=== PATIENT | female | born 1950 | race Hispanic/Latino ===

== ENCOUNTER 2019-02-14 11:00 | Emergency (ER) | payer MEDICARE ==
[~2019-02-14] VITALS: Ht 142.2 cm; Wt 57.6 kg
--- NOTE | 2019-02-14 13:58 | Diagnostic Imaging Report ---
EXAMINATION: KNEE LEFT THREE VIEWS INDICATION: Knee pain COMPARISON: None FINDINGS: AP, lateral and oblique images of the left knee demonstrate no acute fracture or dislocation. Alignment is anatomic. No substantial joint effusion. No significant degenerative change. IMPRESSION: No acute osseous injury. No substantial degenerative change. Signed by: Luz Kay MD on 02/14/2019 1:55 PM
--- NOTE | 2019-02-14 14:03 | NUR ---
Pt requesting disc of xray to bring to her doctor. Radiology contacted.
[2019-02-14 14:32] VITALS: BP 127/59
== END 2019-02-14 14:34 | disposition home or self-care (01) ==
LOC: ER 11:00
DX: S83.412A Sprain of medial collateral ligament of left knee, initial encounter (principal); S80.02XA Contusion of left knee, initial encounter; M25.562 Pain in left knee; X50.1XXA Overexertion from prolonged static or awkward postures, initial encounter; Y92.008 Other place in unspecified non-institutional (private) residence as the place of occurrence of the external cause
CPT/HCPCS: 99283

== ENCOUNTER 2020-01-28 15:20 | Observation (INO) | payer MEDICARE ==
[~2020-01-28] VITALS: Ht 142.2 cm; Wt 57.6 kg
[2020-01-28] MEDS ORDERED: SODIUM CHLORIDE 0.9% 1000ML 1,000 ML IV STA (15:56)
[2020-01-28] MEDS ORDERED: MORPHINE SULFATE 2 MG/ML SYR 1ML IV NR (16:00)
[2020-01-28] MEDS ORDERED: LIDOCAINE HCL 2% 2 ML AMP INJ NR (16:00)
[2020-01-28] MEDS ORDERED: ONDANSETRON HCL INJ 2MG/ML 2ML 2 MG/ML VIAL IV NR (16:15)
[2020-01-28 16:18] LABS: BASOPHILS % 0.3 % (0.0-1.0); EOSINOPHILS # (AUTO) 0.1 (0.0-0.4); HEMATOCRIT 38.6 % (34.2-44.1); HEMOGLOBIN 12.6 g/dL (12.0-16.0); LYMPHOCYTES # (AUTO) 2.6 (1.0-3.2); MEAN CORPUSCULAR HEMOGLOBIN 27.2 pg (28-32); MEAN CORPUSCULAR HGB CONC 32.6 g/dL (31-35); MEAN CORPUSCULAR VOLUME 83.4 fL (81-99); MONOCYTES # (AUTO) 0.6 (0.2-0.8); MONOCYTES % 9.4 % (4.4-11.3); NEUTROPHILS # (AUTO) 3.2 (2.1-6.9); NEUTROPHILS % 47.8 % (38.7-80.0); PLATELET COUNT 256 x10e3/uL (140-360); RED BLOOD COUNT 4.63 x10e6/uL (3.6-5.1); RED CELL DISTRIBUTION WIDTH 13.2 % (11.7-14.4)
[2020-01-28 16:23] LABS: INR 0.88; PARTIAL THROMBOPLASTIN TIME 25.9 seconds (23.8-35.5); PROTHROMBIN TIME 12.4 seconds (11.9-14.5)
[2020-01-28 16:32] LABS: ALANINE AMINOTRANSFERASE 13 IU/L (0-55); ALBUMIN/GLOBULIN RATIO 1.3 (0.8-2.0); ALKALINE PHOSPHATASE 80 IU/L (40-150); ANION GAP 14.1 mmol/L (8-16); BLOOD UREA NITROGEN 15 mg/dL (7-26); BUN/CREATININE RATIO 19 (6-25); CALCIUM 9.5 mg/dL (8.4-10.2); CARBON DIOXIDE 22 mmol/L (22-29); CHLORIDE 107 mmol/L (98-107); CREATININE, SERUM 0.81 mg/dL (0.57-1.11); EST GLOMERULAR FILTRATION RATE > 60 ML/MIN (60-); GLUCOSE 119 mg/dL (74-118); POTASSIUM 4.1 mmol/L (3.5-5.1); SODIUM 139 mmol/L (136-145)
[2020-01-28] MEDS ORDERED: SODIUM CHLORIDE 0.9% 1000ML 1,000 ML IV SCH (17:15)
[2020-01-28] MEDS ORDERED: ONDANSETRON HCL INJ 2MG/ML 2ML 2 MG/ML VIAL IV PRN (17:15)
[2020-01-28] MEDS ORDERED: MORPHINE SULFATE 2 MG/ML SYR 1ML IV PRN (17:15)
[2020-01-28] MEDS: PIPER-TAZ 3.375 GM 50 ML IV SCH (17:22)
--- NOTE | 2020-01-28 18:02 | Emergency Department Note ---
History of Present Illnes History of Present Illness Chief Complaint: Extremity Trauma/Pain History of Present Illness This is a 69 year old female LEFT THUMB PARTIAL AMPUTATION. BLEEDING CONTROLLED. PT WAS USING SINK TRAP SNAKE TO OPEN DRAIN AND COILED AROUND THUMB AND CUT DISTAL THUMB OFF. EMS BROUGHT THUMB PIECE Historian: Patient, Compliance Aide/EMS Arrival Mode: [facility] Treatment ECHO TECHNICIAN: See EMS Report History limited by: language barrier Structural Steel Painter Required: No Onset (how long ago): minute(s) Location: LEFT THUMB Quality: PAIN Radiation: Reports non-radiation Severity: severe Onset quality: sudden Timing of current episode: constant Chronicity: new Context: Denies recent illness Relieving factors: none Exacerbating factors: none Associated symptoms: Reports denies other symptoms Treatments prior to arrival: none Past Medical/Family History Physician Review I have reviewed the patient's past medical and family history. Any updates have been documented here. Past Medical History Recent Fever: No Clinical Suspicion of Infectio: No New/Unexplained Change in Ment: No Past Medical History: None Past Surgical History: None Social History Smoking Cessation: Never Smoker Counseling Performed: No Alcohol Use: None Any Illegal Drug Use: No TB Exposure/Symptoms: No Physically hurt or threatened: No Other Last Tetanus: UNKNOWN Any Pre-Existing Lines (PICC,: No Review of Systems Review of Systems Constitutional: Reports no symptoms EENTM: Reports no symptoms Cardiovascular: Reports no symptoms Respiratory: Reports no symptoms Gastrointestinal: Reports no symptoms Genitourinary: Reports no symptoms Musculoskeletal: Reports as per HPI Integumentary: Reports no symptoms Neurological: Reports no symptoms Psychological: Reports no symptoms Endocrine: Reports no symptoms Hematological/Lymphatic: Reports no symptoms Physical Exam Related Data Allergies: Coded Allergies: No Known Allergies (Unverified , 02/14/19) Triage Vital Signs Vital Signs Date Time Temp Pulse Resp B/P (MAP) Pulse Ox O2 Delivery O2 Flow Rate FiO2 01/28/20 15:22 97.5 92 18 158/92 100 Room Air Vital signs reviewed: Yes Physical Exam CONSTITUTIONAL Constitutional: Present well-developed, Present well-nourished HENT HENT: Present normocephalic, Present atraumatic, Present oropharynx clear/moist, Present nose normal HENT L/R: Present left ext ear normal, Present right ext ear normal EYES Eyes: Reports PERRL, Reports conjunctivae normal NECK Neck: Present ROM normal PULMONARY Pulmonary: Present effort normal, Present breath sounds normal CARDIOVASCULAR Cardiovascular: Present regular rhythm, Present heart sounds normal, Present capillary refill normal, Present normal rate GASTROINTESTINAL Abdominal: Present soft, Present nontender, Present bowel sounds normal GENITOURINARY Genitourinary: Present exam deferred SKIN Skin: Present warm, Present dry MUSCULOSKELETAL Musculoskeletal: Present other (DISTAL LEFT THUMB AMPUTATED JUST DISTAL TO DIP, BONE EXPOSED) NEUROLOGICAL Neurological: Present alert, Present oriented x 3, Present no gross motor or sensory deficits PSYCHOLOGICAL Psychological: Present mood/affect normal, Present judgement normal Results Laboratory Result Diagram: 01/28/20 1552 01/28/20 1552 Laboratory Laboratory Tests Test 01/28/20 15:52 White Blood Count 6.60 x10e3/uL (4.8-10.8) Red Blood Count 4.63 x10e6/uL (3.6-5.1) Hemoglobin 12.6 g/dL (12.0-16.0) Hematocrit 38.6 % (34.2-44.1) Mean Corpuscular Volume 83.4 fL (81-99) Mean Corpuscular Hemoglobin 27.2 pg (28-32) Mean Corpuscular Hemoglobin Concent 32.6 g/dL (31-35) Red Cell Distribution Width 13.2 % (11.7-14.4) Platelet Count 256 x10e3/uL (140-360) Neutrophils (%) (Auto) 47.8 % (38.7-80.0) Lymphocytes (%) (Auto) 40.0 % (18.0-39.1) Monocytes (%) (Auto) 9.4 % (4.4-11.3) Eosinophils (%) (Auto) 2.0 % (0.0-6.0) Basophils (%) (Auto) 0.3 % (0.0-1.0) Neutrophils # (Auto) 3.2 (2.1-6.9) Lymphocytes # (Auto) 2.6 (1.0-3.2) Monocytes # (Auto) 0.6 (0.2-0.8) Eosinophils # (Auto) 0.1 (0.0-0.4) Basophils # (Auto) 0.0 (0.0-0.1) Absolute Immature Granulocyte (auto 0.03 x10e3/uL (0-0.1) Prothrombin Time 12.4 seconds (11.9-14.5) Prothromb Time International Ratio 0.88 Activated Partial Thromboplast Time 25.9 seconds (23.8-35.5) Sodium Level 139 mmol/L (136-145) Potassium Level 4.1 mmol/L (3.5-5.1) Chloride Level 107 mmol/L (98-107) Carbon Dioxide Level 22 mmol/L (22-29) Anion Gap 14.1 mmol/L (8-16) Blood Urea Nitrogen 15 mg/dL (7-26) Creatinine 0.81 mg/dL (0.57-1.11) Estimat Glomerular Filtration Rate > 60 ML/MIN (60-) BUN/Creatinine Ratio 19 (6-25) Glucose Level 119 mg/dL (74-118) Calcium Level 9.5 mg/dL (8.4-10.2) Total Bilirubin 0.4 mg/dL (0.2-1.2) Aspartate Amino Transf (AST/SGOT) 18 IU/L (5-34) Alanine Aminotransferase (ALT/SGPT) 13 IU/L (0-55) Alkaline Phosphatase 80 IU/L (40-150) Total Protein 7.1 g/dL (6.5-8.1) Albumin 4.0 g/dL (3.5-5.0) Globulin 3.1 g/dL (2.3-3.5) Albumin/Globulin Ratio 1.3 (0.8-2.0) Lab results reviewed: Yes Imaging Imaging results reviewed: Yes Assessment & Plan Medical Decision Making MDM CHECK XRAY, SPOKE WITH DR AVILA - UNABLE TO COME NOW, WILL ADMIT OVERNIGHT, GIVE IV ABX'S, SHE WILL SHORTEN THE BONE AND CLOSE FLAP IN AM TOMORROW. 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 Depart Disposition: ADMITTED Last Vital Signs Date Time Temp Pulse Resp B/P (MAP) Pulse Ox O2 Delivery O2 Flow Rate FiO2 01/28/20 16:10 85 13 140/118 100 Room Air 01/28/20 15:54 98.3 Medications in the ED Morphine Sulfate 4 mg ONCE IV ; Start 01/28/20 at 16:00; Stop 02/04/20 at 15:59 Ondansetron HCl 4 mg ONCE IV ; Start 01/28/20 at 16:15; Stop 01/28/20 at 17:59 Sodium Chloride 1,000 ml @ 0 mls/hr Q0M STAT IV Last administered on 01/28/20at 16:39; Admin Dose 999 MLS/HR; Start 01/28/20 at 15:56; Stop 01/28/20 at 16:04; Status DC Lidocaine HCl 20 ml ONCE INJ ; Start 01/28/20 at 16:00; Stop 01/28/20 at 17:59 Piperacillin Sod/ Tazobactam Sod 50 ml @ 50 mls/hr Q6H IV Last administered on 01/28/20at 17:22; Admin Dose 50 MLS/HR; Start 01/28/20 at 16:30; Stop 02/04/20 at 16:29 Ondansetron HCl 4 mg Q4H PRN IV NAUSEA AND VOMITING; Start 01/28/20 at 17:15; Stop 02/27/20 at 17:14 Sodium Chloride 1,000 ml @ 100 mls/hr Q10H IV ; Start 01/28/20 at 17:15; Stop 01/29/20 at 03:14 Morphine Sulfate 2 mg Q3H PRN IV PAIN Last administered on 01/28/20at 17:21; Admin Dose 2 MG; Start 01/28/20 at 17:15; Stop 02/04/20 at 17:14 SANTIAGO LUX MD Jan 28, 2020 18:02
--- NOTE | 2020-01-28 18:18 | Diagnostic Imaging Report ---
Exam: Left hand radiographs-3 views History: Amputation left thumb. Comparison: None. Findings/Impression: There is been partial amputation of the thumb across the proximal aspect of the distal phalanx. The remaining base of the thumb distal phalanx is exposed. Surrounding soft tissue edema and bandage material. No additional fractures identified. No dislocation. Signed by: Dr. Ezra Cervantes MD on 01/28/2020 6:15 PM
[2020-01-28] MEDS ORDERED: ACETAMINOPHEN 325 MG TAB PO PRN (19:00)
[2020-01-28] MEDS ORDERED: KETOROLAC TROMETHAMINE 30 MG/ML VIAL IV PRN (19:00)
[2020-01-28] MEDS ORDERED: HYDRALAZINE HCL 25 MG TAB PO PRN (19:00)
[2020-01-28] MEDS ORDERED: AMLODIPINE BESYLATE 10 MG TAB PO PRN (19:00)
[2020-01-28] MEDS ORDERED: HYDROCODONE/APAP 7.5MG-325MG 1 EA TAB PO PRN (19:00)
[2020-01-28] MEDS ORDERED: FAMOTIDINE 20 MG/2 ML VIAL IV NR (19:00)
--- NOTE | 2020-01-28 19:13 | NUR ---
RECEIVED REPORT FROM ALEJANDRO WALKER FROM THE ER. -PATIENT ARRIVED TO THE UNIT @ 1845 VIA WHEEL CHAIR. PATIENT IN STABLE CONDITION, NO S/S OF DISTRESS NOTED. NO PAIN VOICED. REPORT GIVEN TO THE ON COMING NIGHT NURSE.
--- NOTE | 2020-01-28 19:58 | NUR ---
RECEIVED PT IN BED AOX3 ,LISA PAIN PT LEFT THUMB WITH WOUND NPO AFTER MIDNIGHT LEFT AC 20G S/L NPO AFTER MIDNIGHT ,CALL LIGHT WITH IN REACH CONTINUE TO MONITOR
[2020-01-28] MEDS: CELECOXIB 100 MG CAP PO SCH (20:00)
[2020-01-28 21:00] VITALS: BP 152/68
[2020-01-29] VITALS (7 sets, daily range): BP systolic 100–128; BP diastolic 50–61
[2020-01-29] MEDS ORDERED: SODIUM CHLORIDE 0.9% 250ML 250 ML ONE (00:37)
[2020-01-29 05:38] LABS: BASOPHILS % 0.6 % (0.0-1.0); EOSINOPHILS # (AUTO) 0.1 (0.0-0.4); EOSINOPHILS % 1.4 % (0.0-6.0); HEMATOCRIT 33.7 % (34.2-44.1); HEMOGLOBIN 11.7 g/dL (12.0-16.0); LYMPHOCYTES # (AUTO) 2.2 (1.0-3.2); LYMPHOCYTES % 31.9 % (18.0-39.1); MEAN CORPUSCULAR HEMOGLOBIN 30.5 pg (28-32); MEAN CORPUSCULAR HGB CONC 34.7 g/dL (31-35); MEAN CORPUSCULAR VOLUME 87.8 fL (81-99); MONOCYTES # (AUTO) 0.7 (0.2-0.8); MONOCYTES % 9.3 % (4.4-11.3); NEUTROPHILS % 56.7 % (38.7-80.0); PLATELET COUNT 184 x10e3/uL (140-360); RED BLOOD COUNT 3.84 x10e6/uL (3.6-5.1); RED CELL DISTRIBUTION WIDTH 14.8 % (11.7-14.4)
[2020-01-29] MEDS: PIPER-TAZ 3.375 GM 50 ML IV SCH ×3 (05:55→11:40)
[2020-01-29 06:07] LABS: ALANINE AMINOTRANSFERASE 11 IU/L (0-55); ALBUMIN 3.4 g/dL (3.5-5.0); ALBUMIN/GLOBULIN RATIO 1.3 (0.8-2.0); ALKALINE PHOSPHATASE 64 IU/L (40-150); ANION GAP 10.8 mmol/L (8-16); BLOOD UREA NITROGEN 12 mg/dL (7-26); BUN/CREATININE RATIO 16 (6-25); CALCIUM 8.6 mg/dL (8.4-10.2); CARBON DIOXIDE 25 mmol/L (22-29); CHLORIDE 111 mmol/L (98-107); CREATININE, SERUM 0.76 mg/dL (0.57-1.11); EST GLOMERULAR FILTRATION RATE > 60 ML/MIN (60-); GLUCOSE 98 mg/dL (74-118); POTASSIUM 3.8 mmol/L (3.5-5.1); SODIUM 143 mmol/L (136-145)
[2020-01-29] MEDS ORDERED: TETANUS/DIPHTHERIA TOX ADULT 0.5 ML SYR IM ONE (06:30)
--- NOTE | 2020-01-29 06:48 | NUR ---
TETANUS SHOT IS GIVEN TO RT UPPER ARM ,PT RESTING DENIES PAIN PT IS NPO ,CALL LIGHT WITH IN REACH ,CONTINUE TO MONITOR
--- NOTE | 2020-01-29 07:30 | NUR ---
PATIENT IS ALERT, AWAKE, AND IN STABLE CONDITION WITH NO S/S OF RESPIRATORY DISTRESS. PATIENT C/O LEFT THUMB PAIN 4/10- DRESSING APPLIED TO LEFT THUMB SITE. CALL LIGHT IS WITHIN REACH, PATIENT INSTRUCTED TO CALL FOR ASSISTANCE NEEDED.
--- NOTE | 2020-01-29 07:50 | NUR ---
BEDSIDE REPORT GIVEN TO THE ONCOMING NURSE
[2020-01-29] MEDS ORDERED: FAMOTIDINE 20 MG/2 ML VIAL IV SCH (09:00)
[2020-01-29] MEDS: CELECOXIB 100 MG CAP PO SCH (09:01)
[2020-01-29] MEDS ORDERED: BUPIVACAINE HCL 0.5% INJ 30 ML VIAL INJ ONE (09:24)
[2020-01-29] MEDS ORDERED: BUPIVACAINE 0.25%/EPI 30ML SDV INJ ONE (09:24)
[2020-01-29] MEDS ORDERED: BACITRACIN 50,000 UNIT VIAL ONE (09:25)
--- NOTE | 2020-01-29 09:54 | NUR ---
PATIENT OFF THE UNIT PER STRETCHER TO OR- PATIENT IN STABLE CONDITION WITH NO S/S OF RESPIRATORY DISTRESS. DRESSING APPLIED TO LEFT THUMB.
[2020-01-29] MEDS ORDERED: LIDOCAINE HCL 2% LOCAL 20 ML VIAL ONE (10:11)
--- NOTE | 2020-01-29 10:46 | Discharge Summary ---
Please review my history and physical. The patient is short-stay. She was seen by Dr. Laureen Sadler. The patient had left thumb partial amputation surgical intervention. The patient will discharge home with clindamycin and Cipro for 5 days. Mobic as needed for pain. I would like to add on Tylenol No. 3 as well. The patient is otherwise stable and discharged home today. MD ROBEL Matias/JAMILA /[id number]
--- NOTE | 2020-01-29 11:21 | History and Physical ---
CHIEF COMPLAINT: Left thumb partial amputation. HISTORY OF PRESENT ILLNESS: The patient is a 69 years old female, who was using a sink trap that smacked open the drain and coiled around the thumb and apparently she accidentally pulled it and cut the distal thumb off. The patient has bleeding. There is some question tissue that needs to be amputated. The patient is otherwise stable. She will see a plastic surgeon for her left thumb partial amputation. PAST MEDICAL HISTORY: Noncontributory. PAST SURGICAL HISTORY: SOCIAL HISTORY: The patient does not smoke or use alcohol. No regular drugs. ALLERGIES: NO KNOWN ALLERGIES. HOME MEDICATIONS: None. PHYSICAL EXAMINATION: VITAL SIGNS: Temperature is 98.9, blood pressure 105/56, pulse rate 64, and respirations 18. GENERAL: The patient is in no acute distress, awake. HEENT: Normocephalic, atraumatic. Anicteric. NECK: Supple grossly. PULMONARY: Clear. CARDIOVASCULAR: Regular rhythm. ABDOMEN: Soft. EXTREMITIES: Left thumb partial amputation. NEUROLOGIC: No focal deficit. LABORATORY DATA: Sodium is 142, potassium 3.8, chloride 111, bicarb 25, BUN 12, creatinine 0.1, glucose is 20, creatinine is 0.8, and glucose is 119. WBC is 7, hemoglobin 12, hematocrit 34, and platelets 256. IMAGING: Left hand showed there is a partial amputation of the thumb across the proximal aspect of the distal phalanx. The remaining base of the thumb distal phalanx exposed. Surrounding soft tissue edema . IMPRESSION: 1. Partial left thumb amputation due to accidentally using sharp object. 2. Antibiotic prophylactics. PLAN: After surgical intervention, the patient should be able to go home. She will follow up with the surgeon, Dr. Laureen Sadler. The patient will follow up with her family physician at the [facility] as planned. The patient is otherwise stable. Discharged home with Mobic 7.5 mg twice a day as needed for pain. Clindamycin 3 mg 3 times a day. Cipro 250 mg twice a day both for 5 days. Again, the patient should be able to follow up with her family physician for any adjustment of medication. MD ROBEL Matias/JAMILA /[id number]
[2020-01-29] MEDS ORDERED: TYLENOL WITH C1 EACH PO (12:50)
[2020-01-29] MEDS ORDERED: MOBIC15 MG PO (12:50)
[2020-01-29] MEDS ORDERED: CLINDAMYCIN HC150 MG PO (12:51)
[2020-01-29] MEDS ORDERED: CIPRO500 MG PO (12:51)
--- NOTE | 2020-01-29 12:52 | Consultation ---
DATE OF CONSULTATION: 01/29/2020 REASON FOR CONSULTATION: Left thumb amputation. HISTORY OF PRESENT ILLNESS: Rafaela Ross is 69-year-old female with a history of cardiac disease who presents for evaluation of left thumb amputation. She was using Roto-Rooter yesterday when she had an accident, accidently avulsed off the tip of her thumb. She presented by ambulance to the emergency department when she was found to have thumb ambulation. She was admitted for antibiotics. She denies any pain elsewhere other than the thumb. She is right hand dominant PAST MEDICAL HISTORY: Cardiac disease. PAST SURGICAL HISTORY: None. FAMILY HISTORY: History of diabetes and coronary artery disease. SOCIAL HISTORY: No tobacco or drug use. REVIEW OF SYSTEMS: Positive for numbness and tingling. Negative for fevers or chills. PHYSICAL EXAMINATION: GENERAL: The patient is alert, awake, and oriented x3. She is ambulating around the room. EXTREMITIES: Evaluation of the left thumb demonstrates dressing in place. There is a partial amputation to the left thumb just distal to the IP joint with exposed bone and fractured tendon. There is no sensation distal to the amputation. Skin around the finger appears warm and well perfused. IMAGING: X-rays of the left thumb demonstrates partial amputation to the level of the distal phalanx, just distal to the IP joint. ASSESSMENT: This is a 69-year-old female with a left thumb amputation. Treatment options were discussed with the patient. I discussed with the patient outcomes of replantation of the left thumb at this level versus revision amputation. The patient would like to proceed with revision amputation. Benefits and risks of surgery were discussed with the patient, including bleeding, infection, damage to vascular structures, need for additional surgery, persistent pain, stiffness, possible loss of life or limb and knowing this, she elected to proceed. Consent was obtained. We will plan for this to be done in the operating room. She will be discharged home later today and we will see her back in clinic in approximately 7-10 days. Contact information was placed into the chart. We will call her to schedule an appointment. MD MANISH Celis/MODL /[id number]
--- NOTE | 2020-01-29 13:22 | Operative Report ---
DATE OF PROCEDURE: 01/29/2020 SURGEON: Laureen Sadler MD ADDITIONAL ATTENDING PHYSICIAN: PREPROCEDURAL DIAGNOSIS: Left thumb amputation. POSTPROCEDURAL DIAGNOSIS: Left thumb amputation. PROCEDURES PERFORMED: 1. Left thumb revision amputation, peripheral nerve block. 2. Irrigation and debridement of the skin, subcutaneous tissue and bone. COMPLICATIONS: None. SPECIMENS: None. ESTIMATED BLOOD LOSS: Less than 5 mL. INDICATIONS FOR PROCEDURE: Rafaela Ross is a 69-year-old female with a history of cardiac disease who presents with a left thumb amputation at the level just distal to PIP joint that she sustained after she was using a Roto-Rooter and avulsed the tip of her thumb off . She presented to the emergency department and found to have a left thumb amputation. She was started on antibiotics. Benefits and risks of surgery were discussed with the patient including bleeding, infection, damage to vascular structures, need for additional surgery, persistent pain, stiffness, possible loss of life or limb and knowing this, she elected to proceed. INDICATIONS FOR PROCEDURE: The patient was identified in the preoperative holding area where the above noted site was marked. She was then transported to the operating room, where above-noted anesthesia was induced. She was placed supine on the table with the left upper extremity on to the hand table. Preprocedural time-out was called. Preoperative antibiotics were dosed. All were in agreement to begin. A 1% lidocaine and 0.5% Marcaine were used to perform a digital block to the level of the MPJ. Left upper extremity was then prepped and draped in usual sterile fashion. A Ashley drain was used to access the tourniquet. The thumb was noted to be avulsed with exposed bone just distal to the IP joint. Flaps were designed and the wound was debrided with the use of curved Iris scissors as well as a curette to debride the open fracture of the bone as well as the skin and soft tissue. Curved Iris scissors were used to perform sharp debridement of the skin and subcutaneous tissue. Once this was performed, dissection scissors were used to identify the neurovascular bundles on both sides of the thumb. Once the bundles were identified, the artery and the nerve were identified and cauterized with bipolar electrocautery and allowed to retract. The flexor tendon was noted to be avulsed at the level of the amputation. This was trimmed and allowed to retract as well. At this point, we then excised the remainder of the distal phalanx disarticulation at the level of the IP joint. A rongeur was then used to clean off the condyles and smooth off the edge of the bone. Once this was performed, we turned our attention to wound closure. The wound was then closed with 4-0 Prolene sutures and 5-0 plain gut ensuring a nice contour to the tip of the thumb with no dog ears. At this point, the tourniquet was then removed and the tip of the thumb pinned up nicely. A soft sterile dressing was then placed and the patient was then awakened from anesthesia and taken to the PACU in stable condition. POSTOPERATIVE PLAN: The patient will be discharged home today. She will see us back in clinic in 7 to 10 days for wound check and suture removal. MD MANISH Celis/JAMILA /[id number]
--- NOTE | 2020-01-29 18:13 | NUR ---
PATIENT OFF THE UNIT AT 1810 PER WHEELCHAIR ACCOMPANIED BY STAFF MEMBER TO THE FRONT LOBBY. PATIENT IN STABLE CONDITION WITH NO S/S OF RESPIRATORY DISTRESS. NO PAIN VOICED. IV REMOVED WITH TIP INTACT. DRESSING TO LEFT THUMB IS CLEAN/DRY/INTACT- PATIENT IS AWARE TO KEEP HER DRESSING CLEAN, DRY, AND INTACT. DISCHARGE TEACHING, INSTRUCTIONS, AND MEDICATIONS GIVEN TO THE PATIENT. ALL PERSONAL ITEMS TAKEN WITH THE PATIENT.
== END 2020-01-29 18:10 | disposition home or self-care (01) ==
LOC: ER 15:24 → ERHOLD 17:15 → MED/SURG3 18:50
PROVIDERS: ADMIT Internal Medicine; ATTEND Internal Medicine
DX: S68.022A Partial traumatic metacarpophalangeal amputation of left thumb, initial encounter (principal); W26.8XXA Contact with other sharp object(s), not elsewhere classified, initial encounter; Y93.G1 Activity, food preparation and clean up; Y92.000 Kitchen of unspecified non-institutional (private) residence as the place of occurrence of the external cause; Z11.59 Encounter for screening for other viral diseases; I25.10 Atherosclerotic heart disease of native coronary artery without angina pectoris
CPT/HCPCS: 26951; 36415 ×2; 73130; 80053 ×2; 85025 ×2; 85610; 85730; 90714; 99284; G0378 ×2; J2001 ×2; J2270; J2405; J2543 ×2; J7030; J7050; U0002

== ENCOUNTER 2020-01-30 21:50 | Emergency (ER) | payer MEDICARE ==
[~2020-01-30] VITALS: Ht 154.9 cm; Wt 54.4 kg
[~2020-01-30 21:50] MED LIST: CIPRO500 MG PO; CLINDAMYCIN HC150 MG PO; MOBIC15 MG PO; TYLENOL WITH C1 EACH PO
--- NOTE | 2020-01-30 23:23 | NUR ---
wound unwrapped, Dr Mccracken at bedside. picture sent to surgeon. wound redressed with vaseline gauze, gauze roll and coban.
[2020-01-30 23:26] VITALS: BP 142/71
--- NOTE | 2020-01-30 23:29 | Emergency Department Note ---
History of Present Illnes History of Present Illness Chief Complaint: Extremity Trauma/Pain History of Present Illness This is a 69 year old female PT HAD SURGERY TO LEFT THUMB 2 DAYS AGO, PRESENTS TODAY DUE TO THROBBING PAIN IN THUMB. . Historian: Patient Arrival Mode: Car Onset (how long ago): day(s) (2) Location: LEFT THUMB Quality: PAIN Radiation: Reports non-radiation Severity: moderate Onset quality: sudden Duration (how long): day(s) (2) Progression: worsening Context: Reports trauma/injury (HURT LEFT THUMB THURSDAY AND HAD SURGERY ON THURSDAY. PARTIAL AMPUTATION) Relieving factors: none Exacerbating factors: movement Associated symptoms: Reports denies other symptoms Treatments prior to arrival: none Past Medical/Family History Physician Review I have reviewed the patient's past medical and family history. Any updates have been documented here. Past Medical History Recent Fever: No Clinical Suspicion of Infectio: No New/Unexplained Change in Ment: No Past Medical History: None Past Surgical History: None Other Surgery: partial amputation to left thumb Social History Smoking Cessation: Never Smoker Alcohol Use: None Any Illegal Drug Use: No Physically hurt or threatened: No Other Last Tetanus: UNKNOWN Any Pre-Existing Lines (PICC,: No Review of Systems Review of Systems Constitutional: Reports no symptoms EENTM: Reports no symptoms Cardiovascular: Reports no symptoms Respiratory: Reports no symptoms Gastrointestinal: Reports no symptoms Genitourinary: Reports no symptoms Musculoskeletal: Reports as per HPI Integumentary: Reports no symptoms Neurological: Reports no symptoms Psychological: Reports no symptoms Endocrine: Reports no symptoms Hematological/Lymphatic: Reports no symptoms Physical Exam Related Data Allergies: Coded Allergies: No Known Allergies (Unverified , 02/14/19) Triage Vital Signs Vital Signs Date Time Temp Pulse Resp B/P (MAP) Pulse Ox O2 Delivery O2 Flow Rate FiO2 01/30/20 23:14 96.7 85 24 142/71 100 Room Air Vital signs reviewed: Yes Physical Exam CONSTITUTIONAL Constitutional: Present well-developed, Present well-nourished HENT HENT: Present normocephalic, Present atraumatic, Present oropharynx clear/moist, Present nose normal HENT L/R: Present left ext ear normal, Present right ext ear normal EYES Eyes: Reports PERRL, Reports conjunctivae normal NECK Neck: Present ROM normal PULMONARY Pulmonary: Present effort normal, Present breath sounds normal CARDIOVASCULAR Cardiovascular: Present regular rhythm, Present heart sounds normal, Present capillary refill normal, Present normal rate GASTROINTESTINAL Abdominal: Present soft, Present nontender, Present bowel sounds normal GENITOURINARY Genitourinary: Present exam deferred SKIN Skin: Present warm, Present dry MUSCULOSKELETAL Musculoskeletal: Present ROM normal, Present other (DRESSING REMOVED, WOUND CLEAN, DRY, INTACT, NO SIGN OF INFECTION) NEUROLOGICAL Neurological: Present alert, Present oriented x 3, Present no gross motor or sensory deficits PSYCHOLOGICAL Psychological: Present mood/affect normal, Present judgement normal Assessment & Plan Medical Decision Making MDM I DISCUSSED PT WITH DR AVILA AND SENT HER A PICTURE OF THE SURGICAL WOUND, SHE STATES PT IS FINE, D/C HOME FOLLOW UP IN OFFICE THIS WEEK SCHEDULED Assessment & Plan Final Impression: (1) Post-op pain (2) Encounter for post surgical wound check Depart Disposition: HOME, SELF-CARE Last Vital Signs Date Time Temp Pulse Resp B/P (MAP) Pulse Ox O2 Delivery O2 Flow Rate FiO2 01/30/20 23:14 96.7 85 24 142/71 100 Room Air Home Meds Reported Medications Ciprofloxacin Hcl (CIPRO) 500 Mg Tablet, 250 MG PO BID, #30 TAB 01/29/20 Clindamycin Hcl (CLINDAMYCIN HCL) 150 Mg Capsule, 300 MG PO TID 01/29/20 Acetaminophen With Codeine (TYLENOL WITH CODEINE #3 TABLET) 1 Each Tablet, 300 MG PO Q6H PRN for PAIN, TAB 01/29/20 Meloxicam (MOBIC) 15 Mg Tablet, 7.5 MG PO BID PRN for PAIN, TAB 01/29/20 MARY CARMEN HARRISON MD Jan 30, 2020 23:29
== END 2020-01-30 23:58 | disposition home or self-care (01) ==
LOC: ER 22:40
DX: G89.18 Other acute postprocedural pain (principal); Z48.01 Encounter for change or removal of surgical wound dressing
CPT/HCPCS: 99283

== ENCOUNTER → 2020-03-05 | Outpatient (RCR) | payer MEDICARE | LOC: OT 08:50 | PROVIDERS: ATTEND Orthopaedic Surgery | DX: Z89.012 Acquired absence of left thumb (principal) ==

== ENCOUNTER 2020-03-30 15:00 | Outpatient (RCR) | payer MEDICARE ==
[~2020-03-30 15:00] MED LIST changes: +BUPIVACAINE 0.5%/EPI 30 ML SDV INJ ONE
== END 2020-04-04 ==
LOC: OT 15:00
PROVIDERS: ATTEND Orthopaedic Surgery
DX: S68.022A Partial traumatic metacarpophalangeal amputation of left thumb, initial encounter (principal)

== ENCOUNTER 2020-04-12 13:00 | Outpatient (RCR) | payer MEDICARE ==
[~2020-04-12 13:00] MED LIST changes: -BUPIVACAINE 0.5%/EPI 30 ML SDV INJ ONE
== END 2020-05-05 ==
LOC: OT 13:00
PROVIDERS: ATTEND Orthopaedic Surgery
DX: S68.022A Partial traumatic metacarpophalangeal amputation of left thumb, initial encounter (principal)